=== PATIENT | female | born 1950 | race Caucasian/White ===

== ENCOUNTER 2017-09-03 05:35 | Inpatient (IN) ==
[2017-08-25 12:37] LABS: Basophils # 0.1 10*3/uL (0.0-0.2); Basophils % 0.8 % (0.0-0.8); Eosinophils # 0.2 10*3/uL (0.0-0.87); Eosinophils % 2.5 % (0.00-10.9); Hematocrit 43.5 VOL% (35.7-47.0); Hemoglobin 14.3 GM/DL (12.0-16.0); Immature Granulocytes % 1.1 %; Immature Granulocytes Absolute 0.08 #; Lymphocytes # 2.4 10*3/uL (1.4-4.0); Lymphocytes % 31.7 % (21.3-54.2); Mean Corpuscular HGB Conc 32.9 GM/DL (32-36); Mean Corpuscular Hemoglobin 30 PG (27-34); Mean Corpuscular Volume 90.8 FL (87-102); Mean Platelet Volume 9.7 FL (9.6-12.0); Monocytes # 0.6 10*3/uL (0.11-0.8); Monocytes % 8.6 % (1.7-12.7); Neutrophils # 4.1 10*3/uL (1.4-7.4); Neutrophils % 55.3 % (38.7-73.9); Platelet Count 262 T/CUMM (130-400); Red Blood Count 4.79 MC/CUMM (3.8-5.5); Red Cell Distribution Width 13.2 % (9.3-17.3); White Blood Count 7.5 T/CUMM (4-12)
[2017-08-25 12:47] LABS: PT Patient Result 10.1 SECS
[2017-08-25 12:49] LABS: Apearance,Urine CLEAR (Clear); Bilirubin,Urine Negative (Negative); Blood, Urine Negative (Negative); Glucose,Urine (UA) Negative (Negative); Ketones,Urine Negative (Negative); Mucus,Urine Occasional /LPF (Occasional); Nitrite,Urine Negative (Negative); Protein,Urine Negative; RBC,Urine <1 /HPF (0-4); Urine Color Yellow (Yellow); Urine Specific Gravity 1.011 (1.001-1.035); Urine Urobilinogen < 2.0 EU/DL (0.2-1.0); WBC,Urine 1 /HPF (0-6)
[2017-08-25 13:24] LABS: Albumin 4.1 G/DL (3.4-5.0); Bilirubin,Total 0.7 MG/DL (0.2-1.0); Calcium 9.4 MG/DL (8.5-10.1); Osmolality,Calculated 274.8 MOS/KG (273-304); Potassium 3.9 MMOL/L (3.5-5.1); Total Protein 6.9 G/DL (6.4-8.3)
[2017-09-03] MEDS ORDERED: ceFAZolin 1,000 MG VIAL ONE (05:57)
[2017-09-03] MEDS ORDERED: VANCOMYCIN 1,000 MG VIAL ONE (05:57)
[2017-09-03] MEDS ORDERED: VANCOMYCIN INJ 1,000 MG in SODIUM CHLORIDE 0.9% 250 ML IV ONE (06:00)
[2017-09-03] MEDS ORDERED: ceFAZolin 1,000 MG in SYRINGE 1 EACH IV ONE (06:00)
[2017-09-03] MEDS: LACTATED RINGERS 1,000 ML IV SCH (07:00)
[2017-09-03] MEDS ORDERED: LACTULOSE 20 GM/30 ML UDCUP PO PRN (07:24)
[2017-09-03] MEDS ORDERED: BISACODYL 10 MG SUPP RECTAL PRN (07:24)
[2017-09-03] MEDS ORDERED: PROMETHAZINE 25 MG/1 ML VIAL IM PRN (07:24)
[2017-09-03] MEDS ORDERED: MORPHINE 2 MG/1 ML SYRINGE IV PRN ×2 (07:24→10:05)
[2017-09-03] MEDS ORDERED: ONDANSETRON 4 MG/2 ML VIAL IV PRN (07:24)
[2017-09-03] MEDS ORDERED: NALOXONE 0.4 MG/ML VIAL IV PRN (07:24)
[2017-09-03] MEDS ORDERED: TEMAZEPAM 7.5 MG CAPSULE PO PRN (07:24)
[2017-09-03] MEDS ORDERED: diphenhydrAMINE CAP 25 MG CAPSULE PO PRN (07:24)
[2017-09-03] MEDS ORDERED: MAGNESIUM HYDROXIDE SUSP 30 ML UDCUP PO PRN (07:24)
[2017-09-03] MEDS ORDERED: GLUCAGON 1 MG VIAL IM PRN (07:30)
[2017-09-03] MEDS ORDERED: DEXTROSE 50% 25 GM/50 ML VIAL IV PRN (07:30)
[2017-09-03] MEDS ORDERED: TRANEXAMIC ACID 1,000 MG/10 ML VIAL IV ONE (07:49)
[2017-09-03] MEDS ORDERED: ROPIVACAINE 0.5% 30 ML VIAL ONE (08:47)
[2017-09-03] MEDS ORDERED: BUPIVACAINE SPINAL 0.75% 2 ML AMP SPINAL ONE (09:09)
[2017-09-03] MEDS ORDERED: PROPOFOL 200 MG/20 ML VIAL IV ONE (09:09)
[2017-09-03] MEDS ORDERED: MIDAZOLAM 2 MG/2 ML VIAL ONE (09:10)
[2017-09-03] MEDS ORDERED: ONDANSETRON 4 MG/2 ML VIAL ONE (09:10)
[2017-09-03] MEDS ORDERED: ACETAMINOPHEN 1,000 MG/100 ML VIAL IV ONE (09:10)
[2017-09-03] MEDS ORDERED: fentaNYL 100 MCG/2 ML VIAL ONE (09:10)
[2017-09-03] MEDS: MORPHINE PCA 30 MG/30 ML SYRINGE IV SCH (09:16)
[2017-09-03] MEDS: INSULIN REGULAR 100 UNIT/ML SUBCUT SCH ×4 (11:17→20:42)
[2017-09-03] MEDS: GABAPENTIN 300 MG CAPSULE PO SCH ×2 (11:42→20:38)
[2017-09-03] MEDS: POTASSIUM CHLORIDE 20 MEQ TABLET PO SCH ×2 (11:42→20:38)
[2017-09-03] MEDS: CHLORTHALIDONE 25 MG TABLET PO SCH (11:42)
[2017-09-03] MEDS: SPIRONOLACTONE 25 MG TABLET PO SCH (11:42)
[2017-09-03] MEDS: hydroCHLOROthiazide 12.5 MG CAPSULE PO SCH (11:43)
[2017-09-03] MEDS: ALLOPURINOL 300 MG TABLET PO SCH (11:43)
[2017-09-03] MEDS: METOPROLOL SUCCINATE XL 25 MG TABLET PO SCH (11:43)
[2017-09-03] MEDS: ALPRAZolam 0.5 MG TABLET PO SCH ×2 (11:43→20:38)
[2017-09-03] MEDS: DOCUSATE SODIUM 100 MG CAPSULE PO SCH ×2 (12:31→20:38)
[2017-09-03] MEDS: ceFAZolin 1,000 MG in SYRINGE 1 EACH IV SCH ×2 (13:31→20:37)
[2017-09-03] MEDS: FONDAPARINUX 2.5 MG/0.5 ML SYRINGE SUBCUT SCH (20:37)
[2017-09-03] MEDS: ASPIRIN EC 81 MG TABLET PO SCH (20:41)
[2017-09-04 06:04] LABS: Basophils # 0.1 10*3/uL (0.0-0.2); Basophils % 0.5 % (0.0-0.8); Eosinophils # 0.2 10*3/uL (0.0-0.87); Eosinophils % 2.5 % (0.00-10.9); Hematocrit 34.7 VOL% (35.7-47.0); Hemoglobin 11.7 GM/DL (12.0-16.0); Immature Granulocytes % 0.8 %; Immature Granulocytes Absolute 0.08 #; Lymphocytes # 1.4 10*3/uL (1.4-4.0); Lymphocytes % 14.3 % (21.3-54.2); Mean Corpuscular HGB Conc 33.7 GM/DL (32-36); Mean Corpuscular Hemoglobin 31 PG (27-34); Mean Corpuscular Volume 91.1 FL (87-102); Mean Platelet Volume 9.9 FL (9.6-12.0); Monocytes % 10.2 % (1.7-12.7); Neutrophils # 6.8 10*3/uL (1.4-7.4); Neutrophils % 71.7 % (38.7-73.9); Platelet Count 188 T/CUMM (130-400); Red Blood Count 3.81 MC/CUMM (3.8-5.5); Red Cell Distribution Width 13.2 % (9.3-17.3); White Blood Count 9.5 T/CUMM (4-12)
[2017-09-04 06:22] LABS: Calcium 8.3 MG/DL (8.5-10.1); Osmolality,Calculated 277.7 MOS/KG (273-304); Potassium 3.7 MMOL/L (3.5-5.1)
[2017-09-04] MEDS ORDERED: ACETAMINOPHEN 325 MG TABLET PO PRN (07:26)
[2017-09-04] MEDS: INSULIN REGULAR 100 UNIT/ML SUBCUT SCH ×4 (07:27→20:11)
[2017-09-04] MEDS: MORPHINE PCA 30 MG/30 ML SYRINGE IV SCH (07:57)
[2017-09-04] MEDS: DOCUSATE SODIUM 100 MG CAPSULE PO SCH ×2 (08:00→20:21)
[2017-09-04] MEDS: METOPROLOL SUCCINATE XL 25 MG TABLET PO SCH (08:00)
[2017-09-04] MEDS: hydroCHLOROthiazide 12.5 MG CAPSULE PO SCH (08:00)
[2017-09-04] MEDS: POTASSIUM CHLORIDE 20 MEQ TABLET PO SCH ×2 (08:01→20:21)
[2017-09-04] MEDS: LACTATED RINGERS 1,000 ML IV SCH ×2 (08:01→19:39)
[2017-09-04] MEDS: SPIRONOLACTONE 25 MG TABLET PO SCH (08:01)
[2017-09-04] MEDS: ALPRAZolam 0.5 MG TABLET PO SCH ×2 (08:01→20:21)
[2017-09-04] MEDS: GABAPENTIN 300 MG CAPSULE PO SCH ×2 (08:01→20:20)
[2017-09-04] MEDS: CHLORTHALIDONE 25 MG TABLET PO SCH (08:01)
[2017-09-04] MEDS: ALLOPURINOL 300 MG TABLET PO SCH (08:01)
[2017-09-04] MEDS: FONDAPARINUX 2.5 MG/0.5 ML SYRINGE SUBCUT SCH (20:20)
[2017-09-04] MEDS: ASPIRIN EC 81 MG TABLET PO SCH (20:23)
[2017-09-05] MEDS: LACTATED RINGERS 1,000 ML IV SCH (03:45)
[2017-09-05] MEDS: INSULIN REGULAR 100 UNIT/ML SUBCUT SCH ×2 (08:36→12:02)
[2017-09-05] MEDS: SPIRONOLACTONE 25 MG TABLET PO SCH (09:49)
[2017-09-05] MEDS: POTASSIUM CHLORIDE 20 MEQ TABLET PO SCH (09:49)
[2017-09-05] MEDS: ALPRAZolam 0.5 MG TABLET PO SCH (09:49)
[2017-09-05] MEDS: GABAPENTIN 300 MG CAPSULE PO SCH (09:50)
[2017-09-05] MEDS: METOPROLOL SUCCINATE XL 25 MG TABLET PO SCH (09:50)
[2017-09-05] MEDS: CHLORTHALIDONE 25 MG TABLET PO SCH (09:50)
[2017-09-05] MEDS: ALLOPURINOL 300 MG TABLET PO SCH (09:50)
[2017-09-05] MEDS: hydroCHLOROthiazide 12.5 MG CAPSULE PO SCH (09:50)
[2017-09-05] MEDS: DOCUSATE SODIUM 100 MG CAPSULE PO SCH (09:51)
[2017-09-05 10:42] VITALS: BP 111/59
== END 2017-09-05 14:50 | DRG 470 ==
LOC: N.OR 05:35 → N.SDSINP 05:37 → EDSTATUS 07:30 → N.3E 09:13
PROVIDERS: ADMIT Orthopaedic Surgery; ATTEND Orthopaedic Surgery